=== PATIENT | female | born 1940 | race Caucasian/White ===

== ENCOUNTER 2017-09-17 09:32 | Emergency (ER) | payer MEDICARE, BC ==
[~2017-09-17] VITALS: Ht 162.6 cm; Wt 77.3 kg
[~2017-09-17 09:32] MED LIST: ALBU18HF2 PO; ATOR10TA70 PO; BUDE10.23 INH; ESOM40CA30 PO; LISI-600 PO; ONDA4TAB59 PO
[2017-09-17 09:45] VITALS: BP 195/82
== END 2017-09-17 10:24 | disposition home or self-care (01) ==
LOC: ER 09:33
DX: I80.02 Phlebitis and thrombophlebitis of superficial vessels of left lower extremity (principal); I10 Essential (primary) hypertension; J45.909 Unspecified asthma, uncomplicated; Z88.8 Allergy status to other drugs, medicaments and biological substances; Z91.040 Latex allergy status; Z79.899 Other long term (current) drug therapy
CPT/HCPCS: 99284

== ENCOUNTER 2018-05-16 19:46 | Emergency (ER) | payer MEDICARE, BC ==
[~2018-05-16] VITALS: Ht 162.6 cm; Wt 80.5 kg
[~2018-05-16 19:46] MED LIST changes: -ALBU18HF2 PO; -ATOR10TA70 PO; +ATOR20TA66 PO; -BUDE10.23 INH; +CARV6.253 PO; -LISI-600 PO; -ONDA4TAB59 PO; +SACU1TAB PO; +SPIR25TA PO
[2018-05-16 20:15] LABS: BASOPHILS % (AUTO) 0.3 % (0-1); EOSINOPHILS % (AUTO) 0.4 % (0-6); HEMATOCRIT 42.9 % (35.0-45.0); HEMOGLOBIN 14.4 g/dl (12.0-16.0); LYMPHOCYTES # (AUTO) 0.9 X10'3 (1.1-4.8); LYMPHOCYTES % (AUTO) 12.2 % (21-51); MEAN CORPUSCULAR HEMOGLOBIN 31.9 PG (27.0-31.0); MEAN CORPUSCULAR HGB CONC 33.7 % (33.0-36.5); MEAN CORPUSCULAR VOLUME 94.6 FL (78-98); MEAN PLATELET VOLUME 8.7 FL (7.4-10.4); MONOCYTES # (AUTO) 0.4 X10'3 (0-0.9); MONOCYTES % (AUTO) 5.7 % (2-12); NEUTROPHILS % (AUTO) 81.4 % (42-75); PLATELET COUNT 219 X10'3 (140-440); RED BLOOD COUNT 4.53 X10'6 (4.20-5.60); RED CELL DISTRIBUTION WIDTH 13.8 % (11.5-14.5); WHITE BLOOD COUNT 7.3 X10'3 (4.5-11.0)
[2018-05-16 20:28] LABS: PARTIAL THROMBOPLASTIN TIME 24 SECONDS (22-32); PROTHROMBIN TIME 10.5 SECONDS (9.0-12.0)
[2018-05-16 20:30] LABS: ALANINE AMINOTRANSFERASE 20 U/L (12-78); ALBUMIN 3.5 G/DL (3.4-5.0); ALBUMIN/GLOBULIN RATIO 0.8 (1.1-1.5); ALKALINE PHOSPHATASE 85 IU/L (46-116); ANION GAP 10 (8-16); ASPARTATE AMINO TRANSFERASE 19 U/L (10-37); BILIRUBIN,TOTAL 0.3 MG/DL (0.1-1.0); BLOOD UREA NITROGEN 32 MG/DL (7-18); BUN/CREATININE RATIO 28.6 (6.6-38.0); CALCIUM 9.6 MG/DL (8.5-10.1); CHLORIDE 108 MMOL/L (99-107); CREATININE 1.12 MG/DL (0.40-0.90); GLUCOSE 94 MG/DL (70-104); POTASSIUM 4.3 MMOL/L (3.5-5.1); SODIUM 142 MMOL/L (135-145); TOTAL CARBON DIOXIDE 23.8 MMOL/L (24-32); eGFR 47 ML/MIN
[2018-05-16] MEDS ORDERED: mag hydrox/Alum hydrox/simeth 30ml oral suspension PO ONE (20:50)
[2018-05-16] MEDS ORDERED: acetaminophen 325mg tablet PO ONE (20:50)
[2018-05-16] MEDS ORDERED: LIDOcaine Viscous 15ml cup PO ONE (20:50)
[2018-05-16 21:13] LABS: D-DIMER 0.39 MG/L FEU (0-0.50)
[2018-05-16] MEDS ORDERED: pantoprazole 40 MG vial IV ONE (21:15)
[2018-05-16] MEDS ORDERED: famotidine 20mg tablet PO ONE (21:15)
[2018-05-16] MEDS ORDERED: PANT-47 PO (21:22)
[2018-05-16 21:46] VITALS: BP 143/67
== END 2018-05-16 21:48 | disposition home or self-care (01) ==
LOC: ER 19:47
DX: K21.9 Gastro-esophageal reflux disease without esophagitis (principal); R07.89 Other chest pain; J45.909 Unspecified asthma, uncomplicated; I11.0 Hypertensive heart disease with heart failure; I50.9 Heart failure, unspecified; I25.10 Atherosclerotic heart disease of native coronary artery without angina pectoris; Z88.1 Allergy status to other antibiotic agents; Z91.040 Latex allergy status; Z88.5 Allergy status to narcotic agent; Z79.899 Other long term (current) drug therapy
CPT/HCPCS: 36415; 71045; 80053; 84484; 85025; 85379; 85610; 85730; 93005; 96374; 99284; C9113

== ENCOUNTER 2018-08-03 11:55 | Emergency (ER) | payer MEDICARE, BC ==
[~2018-08-03] VITALS: Ht 162.6 cm; Wt 78.2 kg
[~2018-08-03 11:55] MED LIST changes: +PANT-47 PO
--- NOTE | 2018-08-03 13:39 | NUR ---
HR FLUCTUATES TO 35-40'S THEN TO 60'S,PALPATED RADIAL PULSE 48BPM,PATIENT DENIES CHEST DISCOMFORT,BP 193/76MMHG,EMILIA SHI MADE AWARE.B OPERATOR AT BEDSIDE.
--- NOTE | 2018-08-03 14:43 | NUR ---
patient placed on pacer pads.ben izaguirre at bedside.
[2018-08-03 15:41] LABS: BASOPHILS # (AUTO) 0.1 X10'3 (0-0.2); BASOPHILS % (AUTO) 1.3 % (0-1); EOSINOPHILS # (AUTO) 0.1 X10'3 (0-0.9); EOSINOPHILS % (AUTO) 1.8 % (0-6); HEMATOCRIT 42.9 % (35.0-45.0); HEMOGLOBIN 14.5 g/dl (12.0-16.0); LYMPHOCYTES # (AUTO) 1.1 X10'3 (1.1-4.8); LYMPHOCYTES % (AUTO) 22.9 % (21-51); MEAN CORPUSCULAR HEMOGLOBIN 31.8 PG (27.0-31.0); MEAN CORPUSCULAR HGB CONC 33.7 g/dL (33.0-36.5); MEAN CORPUSCULAR VOLUME 94.4 FL (78-98); MEAN PLATELET VOLUME 8.5 FL (7.4-10.4); MONOCYTES # (AUTO) 0.4 X10'3 (0-0.9); MONOCYTES % (AUTO) 8.1 % (2-12); NEUTROPHILS % (AUTO) 65.9 % (42-75); PLATELET COUNT 213 X10'3 (140-440); RED BLOOD COUNT 4.55 X10'6 (4.20-5.60); RED CELL DISTRIBUTION WIDTH 13.8 % (11.5-14.5); WHITE BLOOD COUNT 4.6 X10'3 (4.5-11.0)
[2018-08-03] MEDS ORDERED: SPIR25TA5 PO (15:53)
[2018-08-03] MEDS ORDERED: ATOR40TA71 PO (15:53)
[2018-08-03] MEDS ORDERED: MULT-933 PO (15:53)
[2018-08-03] MEDS ORDERED: FEXO180T94 PO (15:53)
[2018-08-03] MEDS ORDERED: PANT-47 PO (15:53)
[2018-08-03] MEDS ORDERED: CARV-49 PO (15:53)
[2018-08-03] MEDS ORDERED: SACU1TAB PO (15:53)
[2018-08-03] MEDS ORDERED: ACET-812 PO (15:53)
[2018-08-03] MEDS ORDERED: CALC1TAB PO (15:53)
[2018-08-03] MEDS ORDERED: DONE10TA44 PO (15:53)
[2018-08-03 15:57] LABS: ALANINE AMINOTRANSFERASE 20 U/L (12-78); ALBUMIN 3.6 G/DL (3.4-5.0); ALBUMIN/GLOBULIN RATIO 0.8 (1.1-1.5); ALKALINE PHOSPHATASE 102 IU/L (46-116); ANION GAP 6 (8-16); ASPARTATE AMINO TRANSFERASE 20 U/L (10-37); BILIRUBIN,TOTAL 0.5 MG/DL (0.1-1.0); BLOOD UREA NITROGEN 30 MG/DL (7-18); BUN/CREATININE RATIO 31.3 (6.6-38.0); CALCIUM 9.3 MG/DL (8.5-10.1); CHLORIDE 108 MMOL/L (99-107); CREATININE 0.96 MG/DL (0.40-0.90); POTASSIUM 3.9 MMOL/L (3.5-5.1); SODIUM 142 MMOL/L (135-145); TOTAL CARBON DIOXIDE 27.9 MMOL/L (24-32); TOTAL PROTEIN 8.2 G/DL (6.4-8.2); eGFR 56 ML/MIN
[2018-08-03 15:58] LABS: GLUCOSE 85 MG/DL (70-104)
[2018-08-03 16:02] LABS: INR 1.1 INR; PARTIAL THROMBOPLASTIN TIME 26 SECONDS (22-32); PROTHROMBIN TIME 10.7 SECONDS (9.0-12.0)
[2018-08-03 17:11] VITALS: BP 193/74
== END 2018-08-03 17:15 | disposition home or self-care (01) ==
LOC: ER 11:56
DX: M79.605 Pain in left leg (principal); I10 Essential (primary) hypertension; J45.909 Unspecified asthma, uncomplicated; Z88.1 Allergy status to other antibiotic agents; Z91.040 Latex allergy status; Z88.5 Allergy status to narcotic agent; Z79.899 Other long term (current) drug therapy
CPT/HCPCS: 36415; 80053; 84145; 85025; 85610; 85730; 93005; 93971; 99284

== ENCOUNTER 2018-10-04 11:07 | Emergency (ER) | payer MEDICARE, BC ==
[~2018-10-04] VITALS: Ht 162.6 cm; Wt 80.4 kg
[~2018-10-04 11:07] MED LIST changes: +ACET-812 PO; -ATOR20TA66 PO; +ATOR40TA71 PO; +CALC1TAB PO; +CARV-49 PO; -CARV6.253 PO; +DONE10TA44 PO; -ESOM40CA30 PO; +FEXO180T94 PO; +MULT-933 PO; -SPIR25TA PO; +SPIR25TA5 PO
[2018-10-04 11:38] LABS: BASOPHILS % (AUTO) 0.8 % (0-1); EOSINOPHILS # (AUTO) 0.1 X10'3 (0-0.9); HEMATOCRIT 41.2 % (35.0-45.0); HEMOGLOBIN 14.1 g/dl (12.0-16.0); LYMPHOCYTES # (AUTO) 0.8 X10'3 (1.1-4.8); LYMPHOCYTES % (AUTO) 12.4 % (21-51); MEAN CORPUSCULAR HEMOGLOBIN 32.3 PG (27.0-31.0); MEAN CORPUSCULAR HGB CONC 34.1 g/dL (33.0-36.5); MEAN CORPUSCULAR VOLUME 94.6 FL (78-98); MEAN PLATELET VOLUME 8.1 FL (7.4-10.4); MONOCYTES # (AUTO) 0.6 X10'3 (0-0.9); MONOCYTES % (AUTO) 9.9 % (2-12); NEUTROPHILS # (AUTO) 4.7 X10'3 (1.8-7.7); NEUTROPHILS % (AUTO) 75.9 % (42-75); PLATELET COUNT 234 X10'3 (140-440); RED BLOOD COUNT 4.36 X10'6 (4.20-5.60); WHITE BLOOD COUNT 6.2 X10'3 (4.5-11.0)
[2018-10-04 11:51] LABS: INR 1.1 INR; PARTIAL THROMBOPLASTIN TIME 27 SECONDS (22-32)
[2018-10-04 11:53] LABS: ALANINE AMINOTRANSFERASE 21 U/L (12-78); ALBUMIN 3.4 G/DL (3.4-5.0); ALBUMIN/GLOBULIN RATIO 0.7 (1.1-1.5); ALKALINE PHOSPHATASE 112 IU/L (46-116); ANION GAP 7 (8-16); ASPARTATE AMINO TRANSFERASE 20 U/L (10-37); BILIRUBIN,TOTAL 0.6 MG/DL (0.1-1.0); BLOOD UREA NITROGEN 16 MG/DL (7-18); CALCIUM 9.7 MG/DL (8.5-10.1); CHLORIDE 107 MMOL/L (99-107); GLUCOSE 110 MG/DL (70-104); SODIUM 141 MMOL/L (135-145); eGFR 54 ML/MIN
[2018-10-04] MEDS ORDERED: morphine 4 MG/ML inj SYRINge IV ONE (13:05)
[2018-10-04] MEDS ORDERED: pantoprazole 40 MG vial IV ONE (13:05)
--- NOTE | 2018-10-04 13:48 | NUR ---
Vascular at bedside
--- NOTE | 2018-10-04 13:58 | NUR ---
pt ambulated to bathroom w/ SBA. Patient gait is steady.
[2018-10-04] MEDS ORDERED: ondansetron/PF 4mg/2ml inj IV ONE (14:05)
[2018-10-04] MEDS ORDERED: vancomycin/NS 1 GM ADD-VANTAGE 250 ML IV ONE (14:05)
[2018-10-04] MEDS ORDERED: PANT-47 PO (15:23)
[2018-10-04] MEDS ORDERED: ONDA8TAB13 PO (15:23)
[2018-10-04] MEDS ORDERED: acetaminophen 325mg tablet PO ONE (15:45)
--- NOTE | 2018-10-04 15:46 | NUR ---
PT REPORTS HEADACHE, RECEIVED VERBAL ORDER FROM DR CAMACHO FOR 650 MG TYLENOL,.
[2018-10-04 16:55] VITALS: BP 152/72
== END 2018-10-04 16:58 | disposition home or self-care (01) ==
LOC: ER 11:07
DX: L03.116 Cellulitis of left lower limb (principal); R07.89 Other chest pain; R10.13 Epigastric pain; R51 Headache; I25.10 Atherosclerotic heart disease of native coronary artery without angina pectoris; I10 Essential (primary) hypertension; J45.909 Unspecified asthma, uncomplicated; Z88.8 Allergy status to other drugs, medicaments and biological substances; Z88.5 Allergy status to narcotic agent; Z91.040 Latex allergy status; Z79.899 Other long term (current) drug therapy
CPT/HCPCS: 36415; 71046; 80053; 84484; 85025; 85610; 85730; 93005; 93971; 96365; 96366; 96375; 99284; C9113; J2270; J2405; J3370

== ENCOUNTER 2018-10-07 08:22 | Emergency (ER) | payer MEDICARE, BC ==
[~2018-10-07] VITALS: Ht 162.6 cm; Wt 77.3 kg
[~2018-10-07 08:22] MED LIST changes: +ONDA8TAB13 PO
[2018-10-07 09:28] LABS: ALBUMIN 3.1 G/DL (3.4-5.0); ANION GAP 6 (8-16); BASOPHILS % (AUTO) 0.9 % (0-1); BLOOD UREA NITROGEN 23 MG/DL (7-18); BUN/CREATININE RATIO 21.9 (6.6-38.0); CALCIUM 9.1 MG/DL (8.5-10.1); CHLORIDE 107 MMOL/L (99-107); CREATININE 1.05 MG/DL (0.40-0.90); EOSINOPHILS # (AUTO) 0.1 X10'3 (0-0.9); EOSINOPHILS % (AUTO) 2.7 % (0-6); GLUCOSE 109 MG/DL (70-104); HEMATOCRIT 39.1 % (35.0-45.0); HEMOGLOBIN 13.5 g/dl (12.0-16.0); LYMPHOCYTES # (AUTO) 0.9 X10'3 (1.1-4.8); LYMPHOCYTES % (AUTO) 16.4 % (21-51); MEAN CORPUSCULAR HEMOGLOBIN 32.5 PG (27.0-31.0); MEAN CORPUSCULAR HGB CONC 34.6 g/dL (33.0-36.5); MEAN PLATELET VOLUME 8.2 FL (7.4-10.4); MONOCYTES # (AUTO) 0.6 X10'3 (0-0.9); MONOCYTES % (AUTO) 10.9 % (2-12); NEUTROPHILS # (AUTO) 3.6 X10'3 (1.8-7.7); NEUTROPHILS % (AUTO) 69.1 % (42-75); PLATELET COUNT 230 X10'3 (140-440); POTASSIUM 4.2 MMOL/L (3.5-5.1); RED BLOOD COUNT 4.16 X10'6 (4.20-5.60); RED CELL DISTRIBUTION WIDTH 13.3 % (11.5-14.5); SODIUM 140 MMOL/L (135-145); TOTAL CARBON DIOXIDE 26.8 MMOL/L (24-32); WHITE BLOOD COUNT 5.3 X10'3 (4.5-11.0); eGFR 51 ML/MIN
[2018-10-07] MEDS ORDERED: normal saline 1000ML IV soln IVB ONE (09:45)
[2018-10-07] MEDS ORDERED: iohexol 300mg/ml 100ml inj. ONE (09:51)
[2018-10-07] MEDS ORDERED: traMADol 50MG tablet PO ONE (10:50)
[2018-10-07] MEDS ORDERED: acetaminophen 325mg tablet PO ONE (10:50)
[2018-10-07] MEDS ORDERED: SULF1TAB49 PO (11:07)
[2018-10-07 11:27] VITALS: BP 156/76
== END 2018-10-07 11:28 | disposition home or self-care (01) ==
LOC: ER 08:22
DX: L03.116 Cellulitis of left lower limb (principal); I25.10 Atherosclerotic heart disease of native coronary artery without angina pectoris; I10 Essential (primary) hypertension; J45.909 Unspecified asthma, uncomplicated; Z88.6 Allergy status to analgesic agent; Z88.1 Allergy status to other antibiotic agents; Z91.040 Latex allergy status
CPT/HCPCS: 36415; 73701; 80048; 85025; 99284; J7030; Q9967

== ENCOUNTER 2018-10-11 08:51 | Emergency (ER) | payer MEDICARE, BC ==
[~2018-10-11] VITALS: Ht 162.6 cm; Wt 77.2 kg
[~2018-10-11 08:51] MED LIST changes: +SULF1TAB49 PO
--- NOTE | 2018-10-11 09:29 | NUR ---
Corbin wrap to left lower leg, instructed pt to apply ice and elevate.
[2018-10-11] MEDS ORDERED: WALKERFR (09:30)
[2018-10-11 09:39] VITALS: BP 126/74
== END 2018-10-11 09:42 | disposition home or self-care (01) ==
LOC: ER 08:52
DX: L03.116 Cellulitis of left lower limb (principal); I25.10 Atherosclerotic heart disease of native coronary artery without angina pectoris; I10 Essential (primary) hypertension; J45.909 Unspecified asthma, uncomplicated; Z88.1 Allergy status to other antibiotic agents; Z91.040 Latex allergy status; Z88.5 Allergy status to narcotic agent; Z88.8 Allergy status to other drugs, medicaments and biological substances; Z79.899 Other long term (current) drug therapy
CPT/HCPCS: 99282

== ENCOUNTER 2021-01-19 10:12 | Emergency (ER) | payer MEDICARE, BC ==
[~2021-01-19] VITALS: Ht 162.6 cm; Wt 72.7 kg
[~2021-01-19 10:12] MED LIST changes: -SULF1TAB49 PO; +WALKERFR
[2021-01-19 10:29] VITALS: BP 157/70
[2021-01-19] MEDS ORDERED: DOXYCYCLINE 100MG CAPSULE PO STA (12:33)
[2021-01-19] MEDS ORDERED: DOXY100C76 PO (12:42)
== END 2021-01-19 12:55 | disposition home or self-care (01) ==
LOC: ER 10:13
DX: L03.114 Cellulitis of left upper limb (principal); M25.532 Pain in left wrist; I25.10 Atherosclerotic heart disease of native coronary artery without angina pectoris; I10 Essential (primary) hypertension; J45.909 Unspecified asthma, uncomplicated; Z88.1 Allergy status to other antibiotic agents; Z88.5 Allergy status to narcotic agent; Z91.040 Latex allergy status; Z79.2 Long term (current) use of antibiotics; Z79.899 Other long term (current) drug therapy
CPT/HCPCS: 73130; 99283

== ENCOUNTER → 2023-02-23 | Outpatient (CLI) | payer MEDICARE, BC ==
[~2023-02-23] MED LIST changes: +iohexol 300mg/ml 100ml inj. ONE
== END | disposition home or self-care (01) ==
LOC: 64 CT 08:55
PROVIDERS: ATTEND Internal Medicine
DX: R91.8 Other nonspecific abnormal finding of lung field (principal); J45.20 Mild intermittent asthma, uncomplicated; R04.2 Hemoptysis
CPT/HCPCS: 74177; J3490; Q9967

== ENCOUNTER 2023-03-17 08:33 | Day surgery (SDC) | payer MEDICARE, BC ==
[2023-03-15 10:20] LABS: BASOPHILS % (AUTO) 0.5 % (0-1); EOSINOPHILS # (AUTO) 0.1 X10'3 (0-0.9); EOSINOPHILS % (AUTO) 1.9 % (0-6); LYMPHOCYTES # (AUTO) 0.9 X10'3 (1.1-4.8); MEAN CORPUSCULAR HEMOGLOBIN 31.9 PG (27.0-31.0); MEAN CORPUSCULAR HGB CONC 33.6 g/dL (33.0-36.5); MEAN CORPUSCULAR VOLUME 94.9 FL (78-98); MEAN PLATELET VOLUME 8.1 FL (7.4-10.4); MONOCYTES # (AUTO) 0.5 X10'3 (0-0.9); MONOCYTES % (AUTO) 10.5 % (2-12); NEUTROPHILS # (AUTO) 3.2 X10'3 (1.8-7.7); NEUTROPHILS % (AUTO) 68.1 % (42-75); PRE OP HEMOGLOBIN 14.1 g/dL (12.0-16.0); PRE OP PLATELET COUNT 193 X10'3 (140-440); PRE OP WHITE BLOOD COUNT 4.7 10'3 (4.8-10.8); RED BLOOD COUNT 4.42 X10'6 (4.20-5.60); RED CELL DISTRIBUTION WIDTH 14.5 % (11.5-14.5)
[2023-03-15 10:43] LABS: ALBUMIN 3.3 G/DL (3.4-5.0); ALBUMIN/GLOBULIN RATIO 0.7 (1.1-1.5); ALKALINE PHOSPHATASE 87 IU/L (46-116); BLOOD UREA NITROGEN 21 MG/DL (7-18); BUN/CREATININE RATIO 21.2 (10.0-20.0); CALCIUM 9.5 MG/DL (8.5-10.1); CHLORIDE 108 MMOL/L (99-107); CREATININE 0.99 MG/DL (0.40-0.90); PRE OP ALT 21 U/L (30-65); PRE OP ANION GAP 5 (8-16); PRE OP AST 20 U/L (10-37); PRE OP BILIRUB, TOTAL 0.4 MG/DL (0.0-1.0); PRE OP POTASSIUM 4.2 MMOL/L (3.4-5.1); PRE OP SODIUM 143 MMOL/L (135-145); TOTAL CARBON DIOXIDE 29.7 MMOL/L (24-32); TOTAL PROTEIN 8.2 G/DL (6.4-8.2); eGFR 54 ML/MIN
[2023-03-15 10:46] LABS: PRE OP GLUCOSE 105 MG/DL (70-104)
[~2023-03-17] VITALS: Ht 162.6 cm; Wt 81.6 kg
[2023-03-17] VITALS (10 sets, daily range): BP systolic 144–184; BP diastolic 65–87; PULSE 50–64; RESP 11–16; TEMP 98.3; O2SAT 50–99
[~2023-03-17 08:33] MED LIST changes: -ACET-812 PO; +ALBU18HF2 INH; +ALLO300T10 PO; +ATOR10TA70 PO; -ATOR40TA71 PO; +BUDE10.2 INH; -CALC1TAB PO; +CALC600T62 PO; +DOCUMENT DATE & TIME OF BETA-BLOCKER PO ONE; -DONE10TA44 PO; -FEXO180T94 PO; -MULT-933 PO; -ONDA8TAB13 PO; -PANT-47 PO; -SPIR25TA5 PO; +VITA1TAB97 PO; -WALKERFR; +famotidine 20mg tablet PO ONE; -iohexol 300mg/ml 100ml inj. ONE; +ringers solution, lacted 1,000 ML IV SCH
[2023-03-17] MEDS ORDERED: fentaNYL/PF 50MCG/1 ML 2ML syringe ONE (11:55)
[2023-03-17] MEDS ORDERED: glycopyrrolate 0.2mg/ml inj ONE (12:04)
[2023-03-17] MEDS ORDERED: sevoflurane 250ml liquid IH ONE (12:04)
[2023-03-17] MEDS ORDERED: rocuronium 10mg/ml inj IV ONE ×2 (12:04→13:17)
[2023-03-17] MEDS ORDERED: neostigmine methylsulfate 1 MG/ML 10ml vial ONE (12:04)
[2023-03-17] MEDS ORDERED: sugammadex 200mg/2ml injection IV ONE (13:13)
[2023-03-17] MEDS ORDERED: hydrALAZINE 20mg/ml inj. IV ONE (13:17)
[2023-03-17] MEDS ORDERED: LIDOcaine 2% (20mg/ml) 5ml vial ONE (13:17)
[2023-03-17] MEDS ORDERED: ondansetron/PF 4mg/2ml inj ONE (13:17)
[2023-03-17] MEDS ORDERED: propofol inj 20 ML IV ONE (13:17)
[2023-03-17] MEDS ORDERED: dexamethasone sod phosphate 4mg/ml inj. ONE (13:17)
[2023-03-17] MEDS ORDERED: albuterol 60 PUFF/8GM Inhaler (90mcg/1 puff) IH ONE (13:45)
--- NOTE | 2023-03-17 13:45 | NUR ---
Received from OR via BED, accompanied by Anesthesiologist and report given by Anesthesiologist. PATIENT WAKING UP, NO S/S OF PAIN, V/S WNL, SCD ON, 20G TO RUE, NO INCISION OR DRESSINGS .
[2023-03-17] MEDS ORDERED: ipratropium/albuterol 3ml nebule IH ONE (13:50)
[2023-03-17] MEDS ORDERED: hydrALAZINE 20mg/ml inj. IV PRN (13:50)
--- NOTE | 2023-03-17 14:45 | NUR ---
PATIENT A&OX4, DENIES PAIN, V/S WNL, SCD OFF, 20G TO RUE D/C, NO INCISION OR DRESSINGS . I HAVE REVIEWED D/C INSTRUCTIONS WITH PATIENT and they have verbalized understanding patient d/c home with all belongings and family gave transport home.
== END 2023-03-17 14:45 | disposition home or self-care (01) ==
LOC: PAS 08:33
PROVIDERS: ATTEND Internal Medicine Critical Care Medicine
DX: R22.2 Localized swelling, mass and lump, trunk (principal); I10 Essential (primary) hypertension; E66.9 Obesity, unspecified; Z68.31 Body mass index [BMI] 31.0-31.9, adult
CPT/HCPCS: 31622; 31623; 31624; 31625; 31627; 31628; 31653; 31654; 36415; 71045; 71046; 71250; 80053; 82948; 85025; 87070; 93005; 94640; 94760; J0360; J1100; J2405; J2704; J2710; J3010; J3490; J7120; Z7506; Z7508; Z7512; A4618

== ENCOUNTER 2024-03-01 10:45 | Inpatient (IN) | payer MEDICARE, BC ==
[~2024-03-01] VITALS: Ht 162.6 cm; Wt 81.7 kg
[~2024-03-01 10:45] MED LIST changes: -DOCUMENT DATE & TIME OF BETA-BLOCKER PO ONE; -famotidine 20mg tablet PO ONE; -ringers solution, lacted 1,000 ML IV SCH
[2024-03-01 13:05] LABS: BASOPHILS % (AUTO) 0.6 % (0-1); EOSINOPHILS % (AUTO) 0 % (0-6); HEMATOCRIT 39.5 % (35.0-45.0); LYMPHOCYTES # (AUTO) 0.8 X10'3 (1.1-4.8); LYMPHOCYTES % (AUTO) 17.4 % (21-51); MEAN CORPUSCULAR HEMOGLOBIN 31.7 PG (27.0-31.0); MEAN CORPUSCULAR HGB CONC 32.9 g/dL (33.0-36.5); MEAN CORPUSCULAR VOLUME 96.3 FL (78-98); MEAN PLATELET VOLUME 8.6 FL (7.4-10.4); MONOCYTES # (AUTO) 0.6 X10'3 (0-0.9); MONOCYTES % (AUTO) 11.9 % (2-12); NEUTROPHILS # (AUTO) 3.3 X10'3 (1.8-7.7); NEUTROPHILS % (AUTO) 70.1 % (42-75); PLATELET COUNT 176 X10'3 (140-440); RED CELL DISTRIBUTION WIDTH 15.2 % (11.5-14.5); WHITE BLOOD COUNT 4.7 X10'3 (4.5-11.0)
[2024-03-01 13:14] LABS: APTT 24 SECONDS (22-32); PROTHROMBIN TIME 10.8 SECONDS (9.0-12.0)
[2024-03-01 13:21] LABS: ALBUMIN 3.1 G/DL (3.4-5.0); ANION GAP 5 (8-16); BLOOD UREA NITROGEN 23 MG/DL (7-18); BUN/CREATININE RATIO 19.5 (10.0-20.0); CHLORIDE 108 MMOL/L (99-107); CREATININE 1.18 MG/DL (0.40-0.90); POTASSIUM 3.9 MMOL/L (3.5-5.1); PRO BRAIN NATRIURETIC PEPTIDE 1032 PG/ML (0-450); SODIUM 141 MMOL/L (135-145); TOTAL CARBON DIOXIDE 27.7 MMOL/L (24-32); eCRCL 31 ML/MIN; eGFR 44 ML/MIN
[2024-03-01 13:24] LABS: GLUCOSE 88 MG/DL (70-104)
[2024-03-01] MEDS ORDERED: magnesium Cl slow-release 64mg tablet PO PRN (14:00)
[2024-03-01] MEDS ORDERED: magnesium hydroxide 30ml (MOM) UD suspension PO PRN (14:00)
[2024-03-01] MEDS ORDERED: mag hydrox/Alum hydrox/simeth 30ml oral suspension PO PRN (14:00)
[2024-03-01] MEDS ORDERED: potassium Cl 20 mEq SR tablet PO PRN ×2 (14:00)
[2024-03-01] MEDS ORDERED: ondansetron/PF 4mg/2ml inj IV PRN (14:00)
[2024-03-01] MEDS ORDERED: potassium Cl 40MEQ/1/2NS 520ml 520 ML IV PRN (14:00)
[2024-03-01] MEDS ORDERED: magnesium sulf-water 4G/100mL 100 ML IV PRN (14:00)
[2024-03-01] MEDS ORDERED: acetaminophen 325mg tablet PO PRN (14:00)
[2024-03-01] MEDS ORDERED: magnesium sulf-water 2g/50mL 50 ML IV PRN (14:00)
[2024-03-01] MEDS: sacubitril/valsartan 24mg-26mg tablet PO SCH ×2 (15:37→21:00)
[2024-03-01] MEDS: hydrALAZINE 20mg/ml inj. IV PRN (16:08)
[2024-03-01] MEDS ORDERED: CARV-50 PO (16:51)
[2024-03-01] MEDS ORDERED: ROSU20TA73 PO (16:51)
[2024-03-01] MEDS ORDERED: FURO20TA4 PO (16:51)
[2024-03-01] MEDS ORDERED: ALBU18HF2 INH (16:54)
[2024-03-01] MEDS ORDERED: sacubitril/valsartan 24mg-26mg tablet PO SCH (17:00)
[2024-03-01] MEDS ORDERED: hydrALAZINE 20mg/ml inj. IV PRN (17:05)
[2024-03-01] MEDS: sacubitril/valsartan 24mg-26mg tablet PO ONE (17:18)
[2024-03-01] MEDS: acetaminophen 325mg tablet PO PRN (17:18)
[2024-03-01] MEDS: furosemide 20 MG/2 ML vial IV SCH (17:20)
[2024-03-01] MEDS: furosemide 20 MG/2 ML vial ONE (17:29)
[2024-03-01 20:00] VITALS: RESP 14; O2SAT 95
[2024-03-01] MEDS: docusate sod 100mg capsule PO SCH (20:00)
[2024-03-01 20:12] VITALS: BP 146/65; PULSE 48; RESP 14; TEMP 96; O2SAT 95
[2024-03-01] MEDS: heparin, porcine 5000 units/ml vial SQ SCH (21:22)
[2024-03-01 22:00] VITALS: BP 153/64; PULSE 50; RESP 10; TEMP 97.5; O2SAT 95
[2024-03-02 02:00] VITALS: BP 152/78; PULSE 55; RESP 14; TEMP 98.3; O2SAT 94
[2024-03-02] MEDS: ibuprofen tablet 400 MG TABLET PO ONE (04:12)
[2024-03-02 06:00] VITALS: BP 141/63; PULSE 59; RESP 13; TEMP 96.2; O2SAT 95
[2024-03-02 08:12] LABS: BASOPHILS % (AUTO) 0.5 % (0-1); EOSINOPHILS % (AUTO) 0 % (0-6); HEMATOCRIT 42.1 % (35.0-45.0); HEMOGLOBIN 14.2 g/dl (12.0-16.0); LYMPHOCYTES # (AUTO) 0.7 X10'3 (1.1-4.8); LYMPHOCYTES % (AUTO) 16.8 % (21-51); MEAN CORPUSCULAR HGB CONC 33.7 g/dL (33.0-36.5); MEAN CORPUSCULAR VOLUME 94.7 FL (78-98); MEAN PLATELET VOLUME 8.7 FL (7.4-10.4); MONOCYTES # (AUTO) 0.6 X10'3 (0-0.9); MONOCYTES % (AUTO) 13.2 % (2-12); NEUTROPHILS % (AUTO) 69.5 % (42-75); PLATELET COUNT 188 X10'3 (140-440); RED BLOOD COUNT 4.45 X10'6 (4.20-5.60); RED CELL DISTRIBUTION WIDTH 15.4 % (11.5-14.5); WHITE BLOOD COUNT 4.3 X10'3 (4.5-11.0)
[2024-03-02 08:24] LABS: ALANINE AMINOTRANSFERASE 12 U/L (12-78); ALBUMIN 3.1 G/DL (3.4-5.0); ALBUMIN/GLOBULIN RATIO 0.6 (1.1-1.5); ALKALINE PHOSPHATASE 83 IU/L (46-116); ANION GAP 7 (8-16); ASPARTATE AMINO TRANSFERASE 22 U/L (10-37); BILIRUBIN,TOTAL 0.7 MG/DL (0.1-1.0); BLOOD UREA NITROGEN 23 MG/DL (7-18); CALCIUM 9.5 MG/DL (8.5-10.1); CHLORIDE 105 MMOL/L (99-107); POTASSIUM 3.5 MMOL/L (3.5-5.1); SODIUM 140 MMOL/L (135-145); TOTAL CARBON DIOXIDE 28.2 MMOL/L (24-32); TOTAL PROTEIN 8.1 G/DL (6.4-8.2); eCRCL 36 ML/MIN; eGFR 53 ML/MIN
[2024-03-02 08:25] LABS: GLUCOSE 92 MG/DL (70-104)
[2024-03-02 08:30] VITALS: RESP 13; O2SAT 95
[2024-03-02 11:15] VITALS: BP 138/73; PULSE 56; RESP 13; TEMP 97.4; O2SAT 98
[2024-03-02 18:00] VITALS: BP 145/69; PULSE 69; RESP 13; TEMP 97.9; O2SAT 95
[2024-03-02 22:00] VITALS: BP 135/64; PULSE 55; RESP 13; TEMP 98.1; O2SAT 93
[2024-03-03 02:00] VITALS: BP 149/77; PULSE 65; RESP 16; TEMP 97.1; O2SAT 95
[2024-03-03 06:00] VITALS: BP 173/71; PULSE 53; RESP 17; TEMP 98.4; O2SAT 95
[2024-03-03 07:43] LABS: BASOPHILS % (AUTO) 0.4 % (0-1); EOSINOPHILS % (AUTO) 0 % (0-6); HEMATOCRIT 44.5 % (35.0-45.0); HEMOGLOBIN 15.2 g/dl (12.0-16.0); LYMPHOCYTES # (AUTO) 0.9 X10'3 (1.1-4.8); LYMPHOCYTES % (AUTO) 20.1 % (21-51); MEAN CORPUSCULAR HEMOGLOBIN 32.5 PG (27.0-31.0); MEAN CORPUSCULAR VOLUME 95.4 FL (78-98); MEAN PLATELET VOLUME 8.4 FL (7.4-10.4); MONOCYTES # (AUTO) 0.6 X10'3 (0-0.9); NEUTROPHILS % (AUTO) 65.5 % (42-75); PLATELET COUNT 196 X10'3 (140-440); RED BLOOD COUNT 4.67 X10'6 (4.20-5.60); RED CELL DISTRIBUTION WIDTH 15.4 % (11.5-14.5); WHITE BLOOD COUNT 4.5 X10'3 (4.5-11.0)
[2024-03-03 07:55] LABS: ALANINE AMINOTRANSFERASE 16 U/L (12-78); ALBUMIN 3.1 G/DL (3.4-5.0); ALBUMIN/GLOBULIN RATIO 0.6 (1.1-1.5); ALKALINE PHOSPHATASE 82 IU/L (46-116); ANION GAP 6 (8-16); ASPARTATE AMINO TRANSFERASE 23 U/L (10-37); BILIRUBIN,TOTAL 0.5 MG/DL (0.1-1.0); BLOOD UREA NITROGEN 30 MG/DL (7-18); BUN/CREATININE RATIO 29.7 (10.0-20.0); CALCIUM 9.4 MG/DL (8.5-10.1); CHLORIDE 105 MMOL/L (99-107); CREATININE 1.01 MG/DL (0.40-0.90); POTASSIUM 3.7 MMOL/L (3.5-5.1); SODIUM 138 MMOL/L (135-145); TOTAL CARBON DIOXIDE 26.7 MMOL/L (24-32); TOTAL PROTEIN 8.2 G/DL (6.4-8.2); eCRCL 36 ML/MIN; eGFR 52 ML/MIN
[2024-03-03 07:58] LABS: GLUCOSE 111 MG/DL (70-104)
[2024-03-03 08:00] VITALS: RESP 17; O2SAT 95
[2024-03-03] MEDS ORDERED: SACU1TAB7 PO (10:36)
[2024-03-03] MEDS ORDERED: FURO20TA4 PO (10:36)
[2024-03-03] MEDS ORDERED: CARV3.12 PO (10:36)
== END 2024-03-03 11:40 | disposition home or self-care (01) | DRG 291 ==
LOC: ER 10:46 → ED HOLD 14:03 → PCU 3S 19:30
PROVIDERS: ADMIT Internal Medicine; ATTEND Internal Medicine
DX: I13.0 Hypertensive heart and chronic kidney disease with heart failure and stage 1 through stage 4 chronic kidney disease, or unspecified chronic kidney disease (principal); I50.33 Acute on chronic diastolic (congestive) heart failure; D68.9 Coagulation defect, unspecified; I16.0 Hypertensive urgency; I49.5 Sick sinus syndrome; K21.9 Gastro-esophageal reflux disease without esophagitis; I42.9 Cardiomyopathy, unspecified; I25.10 Atherosclerotic heart disease of native coronary artery without angina pectoris; N18.30 Chronic kidney disease, stage 3 unspecified; K57.30 Diverticulosis of large intestine without perforation or abscess without bleeding; I87.2 Venous insufficiency (chronic) (peripheral); E78.5 Hyperlipidemia, unspecified; J45.909 Unspecified asthma, uncomplicated; Z95.0 Presence of cardiac pacemaker; Z88.5 Allergy status to narcotic agent; Z88.8 Allergy status to other drugs, medicaments and biological substances; Z91.040 Latex allergy status
CPT/HCPCS: 36415; 71045; 80048; 80053; 83880; 84484; 85025; 85610; 85730; 87081; 93005; 93306; 93970; 97116; 97161; 97530; 99285; G0378; J0360; J1644; J1940

== ENCOUNTER 2024-12-24 06:07 | Day surgery (SDC) | payer MEDICARE, BC ==
[2024-12-23 10:41] LABS: MEAN PLATELET VOLUME 8.5 FL (7.4-10.4); RED CELL DISTRIBUTION WIDTH 14.6 % (11.5-14.5)
[2024-12-23 10:52] LABS: APTT 28 SECONDS (22-32); INR 1.0 INR
[2024-12-23 11:06] LABS: CREATININE 1.15 MG/DL (0.40-0.90); TOTAL CARBON DIOXIDE 26.0 MMOL/L (24-32); eGFR 45 ML/MIN
[2024-12-24] VITALS (11 sets, daily range): BP systolic 125–182; BP diastolic 60–73; PULSE 60–61; RESP 14–16; TEMP 97.6; O2SAT 97–100
[~2024-12-24] VITALS: Ht 160 cm; Wt 79.5 kg
[~2024-12-24 06:07] MED LIST changes: -ALBU18HF2 INH; +ALBU8HFA INH; -ALLO300T10 PO; -ATOR10TA70 PO; -BUDE10.2 INH; -CALC600T62 PO; -CARV-49 PO; +EMPA10TA PO; +FURO-150 PO; +GLUC-192 PO; -SACU1TAB PO; +SACU1TAB4 PO; -VITA1TAB97 PO; +Zinc PO; +[UNRECOGNIZED DRUG - CODE] PO
--- NOTE | 2024-12-24 06:31 | ELECTROCARDIOGRAPH REPORT ---
[facility] Test Date: 2024-12-24 Test Time: 06:30:23 Pat Name: MARY HOOVER Department: [facility] Patient ID: [id number] Room: Gender: F [employer] Supervisor: JESÚS : 1940 Requested By: ART GONZALEZ Order Number: [id number] Reading MD: Dr. Gold Jones Measurements Intervals Marble Rate: 50 P: 66 WI: 226 QRS: -56 QRSD: 136 T: 81 QT: 429 QTc: 392 Interpretive Statements Sinus rhythm Prolonged WI interval Left bundle branch block Electronically Signed On 12-24-2024 8:20:[address] Gold Jones Please click the below link to view image of tracing.
[2024-12-24] MEDS ORDERED: ceFAZolin 2gm/dext,iso 50mL 50 ML IV ONE (06:35)
[2024-12-24] MEDS ORDERED: ALBU10.7 (07:04)
[2024-12-24] MEDS ORDERED: APIX2.5T PO (07:04)
[2024-12-24] MEDS ORDERED: AMLO5TAB16 PO (07:04)
[2024-12-24] MEDS ORDERED: ROSU20TA98 PO (07:06)
[2024-12-24] MEDS ORDERED: BUDE10.32 (07:08)
[2024-12-24] MEDS ORDERED: fentaNYL/PF 50MCG/1 ML 2ML syringe ONE (07:36)
[2024-12-24] MEDS ORDERED: midazolam 1 mg/ML 2ml injection ONE ×2 (07:36→08:57)
[2024-12-24] MEDS ORDERED: LIDOcaine 1% W/epiNEPHrine 1:100,000 20ml vial ONE (07:37)
[2024-12-24] MEDS ORDERED: hydrALAZINE 20mg/ml inj. ONE (08:43)
[2024-12-24] MEDS ORDERED: normal saline 1000ml 1,000 ML IV SCH (10:15)
[2024-12-24] MEDS ORDERED: HYDROcodone/acetaminophen 10/325mg tab PO PRN (10:15)
[2024-12-24] MEDS ORDERED: vancomycin/NS 1 GM ADD-VANTAGE 250 ML X 1 DOSE IV ONE (11:00)
--- NOTE | 2024-12-24 11:50 | RADIOLOGY REPORT ---
EXAM: DI CHEST,TWO VIEWS CLINICAL HISTORY: s/p pacemaker COMPARISON: DI CHEST,TWO VIEWS on DOS: 03/15/23, CHEST,TWO VIEWS on DOS: 10/04/18 TECHNIQUE: Frontal and lateral view of the chest was obtained FINDINGS: Lines and Tubes: Cardiac pacemaker projects over left chest wall. Lungs: No focal consolidation. Pleura: Trace right pleural effusion. No pneumothorax. Cardiomediastinal contours:Cardiomegaly. Bones: No acute osseous abnormality. IMPRESSION: Trace right pleural effusion.
[2024-12-24] MEDS: VANCOMYCIN 1GM 200ML H20 (PEG) 200 ML IV ONE (11:51)
[2024-12-24] MEDS: HYDROcodone/acetaminophen 5mg/325mg tablet PO PRN (11:51)
[2024-12-24] MEDS ORDERED: CEPH-585 PO (13:25)
[2024-12-24] MEDS ORDERED: FURO-150 PO (13:49)
--- NOTE | 2025-01-16 08:15 | CARDIOLOGY REPORT ---
DATE OF SERVICE: 12/24/2024 DICTATING PHYSICIAN: RALPH Ivey MD PERMANENT PACEMAKER IMPLANTATION REPORT CARDIOLOGY: RALPH Ivey MD PRIMARY CARE PHYSICIAN: Narciso Cunha MD INDICATION: The patient is an 84-year-old postmenopausal female with hypertension, hyperlipidemia, cardiomyopathy, history of Takotsubo syndrome, sick sinus syndrome with symptomatic tachybrady episodes. The patient's beta-marguerite dose initiated for cardiac therapy. It has been reduced because of her bradycardia. The patient had an event monitor in 11/27. Lowest heart rate was in the 40s. Average heart rate was 62. The patient continues to have exertional fatigue, tiredness, and episodes of dizziness. After discussing risks, benefits, and alternative options, the patient prefers to proceed with definitive permanent pacemaker implantation. Risks, benefits, and alternative options were discussed, informed consent obtained. SURGEON: RALPH Ivey MD, FACC [employer] SYSTEMS ENGINEER SURGEON: None. ANESTHESIOLOGIST: None. ANESTHESIA: Conscious local anesthesia. COMPLICATIONS: None. BLOOD LOSS: Less than 20 mL PROCEDURES: * Fluoroscopy. * AV sequential pacemaker implantation. * Conscious sedation was 60 minutes. DESCRIPTION OF PROCEDURE: Left infraclavicular area was prepped and draped in the usual fashion. Using blunt dissection and electrocautery, two separate accesses were obtained into the left subclavian vein using micropuncture technique. Micropuncture was eventually replaced with two J-wires. Horizontal incision placed in the left infraclavicular area. Using blunt dissection and electrocautery, prepectoral subcutaneous pacemaker pocket was fashioned. External ends of the J wires were retrieved into the pacemaker pocket. Two 7-Liberian sheaths were advanced over the J wires. Through one of them, RV lead was advanced to the RV apex and screwed to the RV apex. Appropriate pacing and sensing thresholds obtained. Sheath removed with peel-away technique and lead anchored to the subcutaneous tissue with Ethibond. Through the second 7-Liberian sheath, right atrial lead was advanced to the right atrium. J-wire was formed, screwed into the right atrial appendage. Appropriate pacing and sensing thresholds were obtained. Sheath removed by a peel-away technique and lead anchored to the subcutaneous tissue with Ethibond. Pocket was irrigated with copious antibiotic solution. Leads connected to appropriate sockets of the pulse generator. Set screws were tightened. Tug test performed. Pacemaker was suspended into the pacemaker pocket. The pocket was closed with continuous 0 Vicryl followed by interrupted 0 Vicryl, third layer of interrupted 2-0 Vicryl applied. Skin approximated with yogi. Pressure dressing applied. The patient tolerated the procedure well with no complications. TECHNICAL INFORMATION: DEVICE USED: Medtronic MRI compatible [place] PPM, model #W3DR01, serial #[id number], [employer]onic, 12/24/2024 left pectoral location. RIGHT ATRIAL LEAD: Model #4076, 52 cm long, serial #[id number], [employer]onic, implanted 12/24/2024, right atrial appendage. P wave amplitude 3.2 millivolts, 627 ohms, pacing threshold 0.75 millisecond at 0.4 milliseconds. RV LEAD: Model #5076, 58 cm long, serial #[id number], [employer]onic, 12/24/2024, RV apex. R wave amplitude 3.5 millivolts, 840 ohms of impedance, pacing threshold of 1 millisecond at 0.4 milliseconds. IMPRESSION: An 84-year-old with sick sinus syndrome with tachybrady episode who underwent successful AV sequential pacemaker implantation without complications. RALPH Ivey MD TID: [id number] RECEIPT: [id number] PETER/JEFFRY/ELYSE cc: Narciso Cunha MD MTDD
== END 2024-12-24 15:10 | disposition home or self-care (01) ==
LOC: SSTAY O 06:07
PROVIDERS: ATTEND Internal Medicine Cardiovascular Disease
DX: I49.5 Sick sinus syndrome (principal); I44.7 Left bundle-branch block, unspecified; R94.31 Abnormal electrocardiogram [ECG] [EKG]; I25.10 Atherosclerotic heart disease of native coronary artery without angina pectoris; I12.9 Hypertensive chronic kidney disease with stage 1 through stage 4 chronic kidney disease, or unspecified chronic kidney disease; N18.30 Chronic kidney disease, stage 3 unspecified; E78.5 Hyperlipidemia, unspecified; J44.9 Chronic obstructive pulmonary disease, unspecified; K21.9 Gastro-esophageal reflux disease without esophagitis; I34.0 Nonrheumatic mitral (valve) insufficiency; I42.9 Cardiomyopathy, unspecified; M19.90 Unspecified osteoarthritis, unspecified site; Z79.899 Other long term (current) drug therapy; Z90.89 Acquired absence of other organs; Z98.41 Cataract extraction status, right eye; Z98.42 Cataract extraction status, left eye; Z98.890 Other specified postprocedural states; Z88.0 Allergy status to penicillin; Z88.5 Allergy status to narcotic agent; Z88.8 Allergy status to other drugs, medicaments and biological substances; Z82.49 Family history of ischemic heart disease and other diseases of the circulatory system; Z83.3 Family history of diabetes mellitus
CPT/HCPCS: 33208; 36415; 71046; 80048; 85025; 85610; 85730; 93005; 99152; 99153; A4565; A6402; C1785; C1898; J0360; J0690; J1200; J2250; J3010; J3375; J3490; J7030; Z7610; A6449